=== PATIENT | female | born 1985 | race Asian ===

== ENCOUNTER 2019-02-04 01:47 | Inpatient (IN) | payer OTHER, MEDICAID ==
[2019-02-04] MEDS ORDERED: Lactated Ringers 1000 ML Bag* 1,000 ML IV ONE (02:48)
[2019-02-04] MEDS ORDERED: Buffered Lidocaine 1% SYRIN* 1 ML/SYRINGE INTRADERM ONE (02:48)
[2019-02-04] MEDS ORDERED: Lactated Ringers 1000 ML Bag* 1,000 ML IV SCH ×2 (03:00→19:00)
--- NOTE | 2019-02-04 03:00 | HP ---
General Information - Reason for Visit srom at 1230 am . gfm . no bleeding - General Information Maternal Age: 33 Grav: 2 Para: 1 SAB: 0 IEA: 0 Estimated Due Date: 02/02/19 Determined By: LMP Maternal Blood Type and Rh: O Positive - Results this Serology/RPR Result: Non-Reactive Rubella Result: Immune HBsAg Result: Negative HIV Result: Negative GBS Culture Result: Negative Past Medical History Delivery History: Hx Uncomplicated Vaginal Delivery Pertinent Past Medical History: Non-Contributory Pertinent Past Surgical History: None Pertinent Family History: Non-Contributory - Antepartal Records Antepartal Records: Reviewed, Uncomplicated Review of Systems Constitutional: Comfortable CV Complaint: No Respiratory: Shortness of Breath: No Genitourinary: Leaking Fluid, No Bleeding Musculoskeletal: No Complaint Neurological: No Headache Movement: Normal Exam Allergies/Adverse Reactions: Allergies No Known Allergies Allergy (Verified 02/04/19 02:04) Lab Values - Entire Visit: Laboratory Tests 02/04/19 02:15 Vag Amniotic Fld Detect Positive - Exam Breast: Breast Exam Deferred Extremities: No Edema Heart: Normal Rhythm/Heart Sounds HEENT: No Significant Findings Lungs: Clear Bilaterally Rectal: Rectal Exam Deferred Reflexes: DTR 2+ Targeted Exam Findings Cervical Exam: 2cm Presenting Part: Vertex Membrane Status: Leaking Amniotic Fluid Evaluation: Positive ROM Plus EFM Findings - External Monitor Findings Baseline Heart Rate: 125 External Monitor Findings: Accelerations Present, Variability Moderate Contractions: Irregular, Mild Assessment/Plan - Assessment 40 + weeks with srom and mild early labor. - Obstetrical Risk Factors Obstetrical Risk Factors: Post-Dates - Plan Plan: Admit - Anticipate Vaginal Delivery
[2019-02-04 03:46] LABS: ABS Lymphocytes 2.1 10^3/ul (1.0-4.8); ABS Monocytes 0.8 10^3/ul (0-0.8); ABS Neutrophils 4.1 10^3/ul (1.5-7.7); Eosinophil % 0.4 %; Hematocrit 38 % (35-47); Hemoglobin 12.9 g/dL (12.0-16.0); Lymphocyte % 29.8 %; Mean Corpuscular HGB Conc 34 g/dL (31-36); Mean Corpuscular Hemoglobin 30 pg (27-31); Mean Corpuscular Volume 90 fL (80-97); Mean Platelet Volume 8.9 fL (7.4-10.4); Nucleated Red Blood Cells % 0.1; Platelet Count 208 10^3/uL (150-450); Red Blood Count 4.25 10^6 /uL (3.70-4.87); Red Cell Distribution Width 14 % (10.5-15)
[2019-02-04] MEDS ORDERED: Oxytocin in LR* 20 UNITS/1,000 ML BAG IVPB ONE (08:22)
[2019-02-04] MEDS ORDERED: Oxytocin in LR* 20 UNITS/1,000 ML BAG IVPB SCH (09:00)
[2019-02-04] MEDS ORDERED: OBEPIDURAL* 250 ML EPIDURAL ONE (10:31)
[2019-02-04] MEDS ORDERED: Dibucaine 1% 28.35 GM TUBE ONE (16:16)
[2019-02-04] MEDS ORDERED: Witch Hazel PAD* JAR ONE (16:16)
[2019-02-04] MEDS ORDERED: Acetaminophen TAB* 325 MG PO PRN (18:36)
[2019-02-04] MEDS ORDERED: Witch Hazel PAD* JAR TOPICAL PRN (18:36)
[2019-02-04] MEDS ORDERED: Dibucaine 1% 28.35 GM TUBE PR PRN (18:36)
[2019-02-04] MEDS ORDERED: Glycerin ADULT SUPP PR PRN (18:36)
--- NOTE | 2019-02-04 18:53 | PROCNOTE ---
[facility] OB: Delivery Note - Delivery A Date of : 02/04/19 Time of : 16:05 [place] Weight at : 7 lb 13 oz Score 1 Minute: 9 Score 5 Minutes: 9 Gestational Age in Weeks and Days at Delivery: 40 Weeks and 2 Days Delivery Method: Spontaneous Vaginal Labor: Spontaneous Did Patient attempt ?: N/A, No Previous Amniotic Fluid: Clear Estimated Blood Loss: 300 Anesthesia/Analgesia: CEI for Labor Delivered By: Mckenna Hollingsworth - Nursery Level of Nursery: Regular/Bedside - Perineum Perineal Injury: Perineal Laceration, 1st Degree - Events Delivery Events of Note: Pitocin During Labor - Additional Delivery Notes Additional Delivery Notes: Pushed arrived with SROM and was von irregularly but didn't feel them much. She was started on pitocin and received an epidural. She progressed to fully dilated and pushed just under 1hr to deliver the infant's headin NIMA position followed by the shoulders and the rest of the body. Baby was placed on the mom's abdomen. After >1min the cord was clamped x2 and cut by the dad. The placenta delivered with fundal massage and gentle cord traction and appeared intact. A 1st degree laceration that extended into the left labia was repaired with 3-0 vicryl. There was brief brisk bleeding that resolved with fundal massage and icnreased pitocin. Fundus was firm with good hemostasis. Mom and baby stable at time of note.
[2019-02-04] MEDS ORDERED: Simethicone TAB* 80 MG TAB.CHEW PO SCH (21:00)
[2019-02-04] MEDS: Docusate CAP* 100 MG PO SCH (21:31)
[2019-02-05] MEDS: Ibuprofen TAB* 600 MG PO PRN ×3 (03:51→20:04)
[2019-02-05] MEDS: Docusate CAP* 100 MG PO SCH ×3 (07:38→20:04)
[2019-02-05 08:49] LABS: ABS Lymphocytes 1.8 10^3/ul (1.0-4.8); ABS Monocytes 0.8 10^3/ul (0-0.8); ABS Neutrophils 6.7 10^3/ul (1.5-7.7); Eosinophil % 0.4 %; Hematocrit 35 % (35-47); Lymphocyte % 19.5 %; Mean Corpuscular HGB Conc 34 g/dL (31-36); Mean Corpuscular Hemoglobin 31 pg (27-31); Mean Corpuscular Volume 90 fL (80-97); Mean Platelet Volume 8.4 fL (7.4-10.4); Nucleated Red Blood Cells % 0.1; Platelet Count 178 10^3/uL (150-450); Red Blood Count 3.94 10^6 /uL (3.70-4.87); Red Cell Distribution Width 14 % (10.5-15); White Blood Count 9.4 10^3/uL (3.5-10.8)
[2019-02-05] MEDS ORDERED: Ferrous Gluconate TAB* 324 MG TAB PO SCH (09:00)
[2019-02-06 08:04] VITALS: BP 102/65
[2019-02-06] MEDS: Ibuprofen TAB* 600 MG PO PRN (13:29)
[2019-02-06] MEDS: Docusate CAP* 100 MG PO SCH (13:29)
== END 2019-02-06 15:24 | disposition home or self-care (01) | DRG 807 ==
LOC: MCHOBOUT 01:47 → MCHOB 02:37
PROVIDERS: ADMIT Obstetrics & Gynecology; ATTEND Obstetrics & Gynecology
PROC: 10E0XZZ Delivery of Products of Conception, External Approach (ICD-10-PCS; principal; 2019-02-04)
PROC: 0HQ9XZZ Repair Perineum Skin, External Approach (ICD-10-PCS; 2019-02-04)
DX: O48.0 Post-term pregnancy (principal); Z37.0 Single live birth; O70.0 First degree perineal laceration during delivery; Z3A.40 40 weeks gestation of pregnancy
CPT/HCPCS: 36415; 84112; 85025; 86850; 86900; 86901; A9270-GY